=== PATIENT | female | born 1975 | race African-American/Black ===

== ENCOUNTER → 2017-03-12 | Outpatient (CLI) | payer OTHER ==
--- NOTE | 2017-03-12 15:49 | RAD ---
DATE: 03/12/2017 EXAM: Right diagnostic digital mammogram HISTORY: Suspicious screening study COMPARISON: 03/02/2017 This study was interpreted with the benefit of Computerized Aided Detection (CAD). The breast parenchyma is heterogeneously dense, which could reduce sensitivity of mammography. Breast parenchyma level C. FINDINGS: Additional spot compression and straight mediolateral views of the right breast were obtained and correlated with the screening study. They confirm the presence of a smooth 10 mm nodule at the 9:00 location in the right breast. It demonstrates a fatty hilum typical of an intramammary lymph node. No suspicious features are seen. Right breast ultrasound, 03/12/2017: A targeted ultrasound exam of the right breast was performed at the 9:00 location. A small lobulated hypoechoic nodule with an echogenic hilum is present measuring 11 mm in greatest diameter. This corresponds to the mammographic abnormality. Its margins are smooth. The appearance is that of a benign intramammary lymph node. No other abnormality is seen. IMPRESSION: 1. Benign intramammary lymph node in the right breast at the 9:00 location. 2. No mammographic evidence of malignancy in the right breast. BI-RADS CATEGORY: 2 BENIGN FINDING(S) RECOMMENDED FOLLOW-UP: 12M 12 MONTH FOLLOW-UP PQRS compliance statement: Patient information was entered into a reminder system with a target due date for the next mammogram. Mammography is a sensitive method for finding small breast cancers, but it does not detect them all and is not a substitute for careful clinical examination. A negative mammogram does not negate a clinically suspicious finding and should not result in delay in biopsying a clinically suspicious abnormality. "Our facility is accredited by the [employer] Mammography [employer]."
== END | disposition home or self-care (01) ==
LOC: MAMMO 13:02
PROVIDERS: ATTEND Nurse Practitioner Family
DX: N63 Unspecified lump in breast (principal)
CPT/HCPCS: 76641; G0204; 77066